=== PATIENT | male | born 1935 | race Caucasian/White ===

== ENCOUNTER 2017-05-01 17:26 | Inpatient (IN) | payer OTHER, MEDICARE ==
[~2017-05-01] VITALS: Ht 175.3 cm; Wt 77.3 kg
[2017-05-01 18:34] VITALS: BP 209/97; PULSE 64; RESP 19; TEMP 97.9; O2SAT 98
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
[2017-05-01 19:23] LABS: AUTOMATED NEUTROPHIL # 4.1 TH/MM3 (1.8-7.7); BASOPHIL % 0.5 % (0.0-2.0); EOSINOPHIL # 0.3 TH/MM3 (0-0.4); EOSINOPHIL % 4.8 % (0.0-4.0); HEMO FLAGS DIFF FINAL; LYMPH % 23.9 % (9.0-44.0); LYMPHOCYTE # 1.6 TH/MM3 (1.0-4.8); MEAN CELL VOLUME 100.6 FL (80.0-100.0); MEAN CORPUSCULAR HEMOGLOBIN 33.5 PG (27.0-34.0); MEAN CORPUSCULAR HGB CONC 33.3 % (32.0-36.0); MONO % 9.4 % (0.0-8.0); NEUT % 61.4 % (16.0-70.0); PLATELET COUNT 227 TH/MM3 (150-450); RED BLOOD COUNT 3.68 MIL/MM3 (4.50-5.90); RED CELL DISTRIBUTION WIDTH 13.3 % (11.6-17.2); WHITE BLOOD COUNT 6.7 TH/MM3 (4.0-11.0)
[2017-05-01 19:38] LABS: ANION GAP 4 MEQ/L (5-15); AST (GOT) 12 U/L (15-37); BICARBONATE 28.5 MEQ/L (21.0-32.0); BLOOD UREA NITROGEN 53 MG/DL (7-18); CHLORIDE 106 MEQ/L (98-107); GLOMERULAR FILTRATION RATE 20 ML/MIN (>89); POTASSIUM 4.9 MEQ/L (3.5-5.1); SODIUM (NA) 138 MEQ/L (136-145)
[2017-05-01 19:39] LABS: ALT (GPT) 20 U/L (12-78)
[2017-05-01 19:42] LABS: ALKALINE PHOSPHATASE 49 U/L (45-117); TOTAL BILIRUBIN ADULT 0.5 MG/DL (0.2-1.0)
[2017-05-01 21:20] VITALS: BP 205/84; PULSE 68; RESP 17
[2017-05-01] MEDS ORDERED: cloNIDine HCL 0.1 MG TAB PO ONE (21:30)
[2017-05-01 22:00] VITALS: BP 173/77; PULSE 65; RESP 19; O2SAT 95
[2017-05-01 23:00] VITALS: BP 123/58; PULSE 62; RESP 18; O2SAT 96
[2017-05-02 03:00] VITALS: BP 150/65; PULSE 54; RESP 18; O2SAT 96
[2017-05-02 07:13] VITALS: BP 181/79; PULSE 55; RESP 18; O2SAT 96
[2017-05-02] MEDS ORDERED: FLUO40CA PO (10:02)
[2017-05-02] MEDS ORDERED: NEXI20CA PO (10:26)
[2017-05-02] MEDS ORDERED: TOPR25TA PO (10:26)
[2017-05-02] MEDS ORDERED: MONT10TA2 PO (10:27)
[2017-05-02] MEDS ORDERED: PLAV75TA29 PO (10:27)
[2017-05-02] MEDS ORDERED: LOVA20TA PO (10:28)
[2017-05-02] MEDS ORDERED: IPRA17I INH (10:30)
[2017-05-02] MEDS ORDERED: ADVA500A INH (10:30)
[2017-05-02] MEDS ORDERED: SPIRCAP INH (10:31)
[2017-05-02] MEDS ORDERED: ALBU2TAB4 PO (10:31)
[2017-05-02] MEDS ORDERED: HYDR-3801 PO (10:32)
[2017-05-02] MEDS ORDERED: SYMB160A INH (10:34)
[2017-05-02] MEDS ORDERED: TRIA1CAP6 PO (10:34)
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
[2017-05-02] MEDS ORDERED: ACETAMINOPHEN 325 MG TAB PO PRN (11:45)
[2017-05-02] MEDS ORDERED: MAGNESIUM HYDROXIDE SUSP 30 ML CUP PO PRN (11:45)
[2017-05-02 13:21] VITALS: BP 178/77; PULSE 59; RESP 16; TEMP 98.2; O2SAT 97
[2017-05-02] MEDS: ALBUTEROL SULFATE 2 MG TAB PO SCH ×2 (14:00→18:00)
[2017-05-02] MEDS: BUDESONIDE-FORMOTEROL 160/4.5 MCG INHALER INH SCH (21:00)
[2017-05-02] MEDS ORDERED: [UNRECOGNIZED DRUG - OTHER] PO SCH (21:00)
[2017-05-02] MEDS ORDERED: TRIAMTERENE PO SCH (21:00)
[2017-05-02] MEDS: hydrALAZINE HCL 100 MG TAB PO SCH (21:00)
--- NOTE | 2017-05-02 21:30 | EKG ---
Date Performed: 05/01/2017 Time Performed: 18:43:10 PTAGE: 82 years EKG: Sinus rhythm WITH FIRST DEGREE AV BLOCK RIGHT BUNDLE BRANCH BLOCK CONSIDER INTRASUBLINE INJURY PATTERN ABNORMAL E CG NO PREVIOUS TRACING DOCTOR: Daron Steiner Interpretating Date/Time 05/02/2017 21:29:06
[2017-05-02] MEDS: MONTELUKAST SODIUM 10 MG TAB PO SCH (21:51)
[2017-05-03 06:12] VITALS: BP 180/82; PULSE 73; RESP 16; TEMP 97.9; O2SAT 93
[2017-05-03] MEDS: hydrALAZINE HCL 100 MG TAB PO SCH ×2 (06:37→22:11)
[2017-05-03] MEDS: TIOTROPIUM BROMIDE 18 MCG INH INH SCH (08:35)
[2017-05-03] MEDS: BUDESONIDE-FORMOTEROL 160/4.5 MCG INHALER INH SCH ×2 (08:36→13:11)
[2017-05-03] MEDS: METOPROLOL SUCCINATE 25 MG EXTENDED RELEASE TAB PO SCH (08:36)
[2017-05-03] MEDS: PANTOPRAZOLE SOD 20 MG DELAYED RELEASE TAB PO SCH (08:37)
[2017-05-03] MEDS: PRAVASTATIN SOD 20 MG TAB PO SCH (08:43)
[2017-05-03] MEDS: ALBUTEROL SULFATE 2 MG TAB PO SCH ×3 (08:43→18:00)
[2017-05-03 11:35] LABS: ANION GAP 7 MEQ/L (5-15); BICARBONATE 27.4 MEQ/L (21.0-32.0); BLOOD UREA NITROGEN 41 MG/DL (7-18); CHLORIDE 106 MEQ/L (98-107); GLOMERULAR FILTRATION RATE 25 ML/MIN (>89); POTASSIUM 4.7 MEQ/L (3.5-5.1); SODIUM (NA) 140 MEQ/L (136-145)
[2017-05-03 11:54] LABS: HDL CHOLESTEROL 32.2 MG/DL (40.0-60.0); LDL CHOLESTEROL 72 MG/DL (0-99)
[2017-05-03] MEDS: SERTRALINE HCL 50 MG TAB PO SCH (14:00)
[2017-05-03 17:11] LABS: HEMOGLOBIN A1a 1.1 %; HEMOGLOBIN A1b 1.8 %; HEMOGLOBIN Ao 84.4 %; HEMOGLOBIN LA1C 2.5 %; HEMOGLOBIN P3 5.5 %
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
[2017-05-03 18:39] VITALS: BP 150/67; PULSE 75; RESP 17; TEMP 97.8; O2SAT 94
[2017-05-03] MEDS: MONTELUKAST SODIUM 10 MG TAB PO SCH (22:11)
[2017-05-04 05:59] VITALS: BP 108/61; PULSE 73; RESP 16; TEMP 98.3
[2017-05-04] MEDS: PRAVASTATIN SOD 20 MG TAB PO SCH (09:00)
[2017-05-04] MEDS: ALBUTEROL SULFATE 2 MG TAB PO SCH ×3 (09:00→17:42)
[2017-05-04] MEDS: SERTRALINE HCL 50 MG TAB PO SCH (09:39)
[2017-05-04] MEDS: PANTOPRAZOLE SOD 20 MG DELAYED RELEASE TAB PO SCH (09:39)
[2017-05-04] MEDS: hydrALAZINE HCL 100 MG TAB PO SCH ×2 (09:39→20:43)
[2017-05-04] MEDS: METOPROLOL SUCCINATE 25 MG EXTENDED RELEASE TAB PO SCH (09:40)
[2017-05-04] MEDS: TIOTROPIUM BROMIDE 18 MCG INH INH SCH (09:40)
[2017-05-04] MEDS: BUDESONIDE-FORMOTEROL 160/4.5 MCG INHALER INH SCH ×2 (09:41→20:40)
--- NOTE | 2017-05-04 11:42 | PD.CONS ---
HPI Service [facility] Hospitalists Consult Requested By Psychiatry Reason for Consult Medical management onH/O stroke and decision whether to resume Plavix Primary Care Physician No Primary Care Physician Diagnoses: History of Present Illness 82 years old male who admitted to psychiatry due adjustment disorder with depressed mood, hospitalist consulted to see the patient regarding his medical history of strokes and coronary artery disease and to decide on whether to resume Plavix which was stopped in ED. I discussed with the patient is a pleasant elderly man he told me he had 3 strokes before, he had a stent placed in his heart rhonchi and ago patient currently has no chest pain. But he told me when his blood pressure was out of control did felt some chest tightness with pressure. 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 SKIN: No rashes, warm and dry HEAD: Atraumatic. Normocephalic. EYES: Pupils equal round and reactive. Extraocular motions intact. No scleral icterus. ENT: Nose without bleeding, or drainage, Airway patent. NECK: Trachea midline. Supple CARDIOVASCULAR: Regular rate and rhythm 3/6 systolic murmur RESPIRATORY: Fair air entry bilaterally. No wheezes, rales, or rhonchi. GASTROINTESTINAL: Abdomen soft, non-tender, nondistended. Positive bowel sounds , abdominal scars for previous surgery MUSCULOSKELETAL: Extremities without clubbing, cyanosis, or edema. Pedal pulses appreciated NEUROLOGICAL: Awake and alert. Moves all extremity. Normal speech.no focal neurological deficit Result Diagram: 05/01/17 1905 05/03/17 1010 Imaging Last Impressions Renal Ultrasound 05/04/17 0000 Signed Impressions: Service Date/Time: , May 04, 2017 10:38 - CONCLUSION: 1. Kidneys are slightly echogenic which can be seen with medical renal disease. 2. Bilateral renal cysts. 3. Enlarged prostate gland. Parish Soto MD Assessment and Plan Assessment and Plan 82 years old male admitted to psych unit for Adjustment disorder with depressed mood H/O strokes 3 History of CAD status post stenting Hypertension Hyperlipidemia ABHINAV on CKD History of hiatal hernia repair Remote history of tobacco abuse Recommendation: I definitely recommending resuming aspirin and Plavix Agree with resuming antihypertensive medication I will order kidney ultrasound, spot urine protein over creatinine ratio, UA to evaluate his kidney failure Will add clonidine when necessary for blood pressure optimization Will obtain medical records from his PCP office Monitor blood pressure closely, A1c within normal limit 5.6 Thank you for this consultation will follow patient with Rico Jaramillo MD May 04, 2017 11:42
--- NOTE | 2017-05-04 11:53 | RADRPT ---
EXAM DATE/TIME: 05/04/2017 10:38 [facility] COMPARISON: No previous studies available for comparison. INDICATIONS : Acute kidney injury with chronic kidney disease. MEDICAL HISTORY : Hypertension. Hernia, hiatal. COPD. Depression. SURGICAL HISTORY : Bilateral shoulder surgery. ENCOUNTER: Initial ACUITY: 1 day PAIN SCORE: 1/10 LOCATION: Bilateral flank MEASUREMENTS: RIGHT KIDNEY: 9.7 x 5.8 x 6.2 cm LEFT KIDNEY: 10.7 x 6.1 x 5.8 cm FINDINGS: RIGHT KIDNEY: Renal cortex is normal in thickness and increase in echotexture. No hydronephrosis, stone, or mass. Simple renal cyst measures 2.5 cm. LEFT KIDNEY: Renal cortex is normal in thickness and increase in echotexture. No hydronephrosis, stone, or mass. Simple cyst measures 1.2 cm. BLADDER: Within normal limits given the degree of distension. Enlarged prostate gland. CONCLUSION: 1. Kidneys are slightly echogenic which can be seen with medical renal disease. 2. Bilateral renal cysts. 3. Enlarged prostate gland. Parish Soto MD on May 04, 2017 at 11:50 Board Certified Radiologist. This report was verified electronically.
[2017-05-04] MEDS ORDERED: cloNIDine HCL 0.1 MG TAB PO PRN (12:00)
[2017-05-04] MEDS: CLOPIDOGREL 75 MG TAB PO SCH (12:14)
[2017-05-04] MEDS: ASPIRIN EC 81 MG TABEC PO SCH (12:14)
[2017-05-04 18:08] VITALS: BP 146/65; PULSE 66; RESP 18; TEMP 98.1; O2SAT 95
--- NOTE | 2017-05-04 18:13 | HHI.PYPN ---
Subjective Remarks Patient seen for follow up; chart reviewed. Patient found in day room interacting with others. Patient states feeling "pretty good", reports having had some difficulty with sleep last evening and states that he usually takes tylenol pm in the evening to sleep when he was at home. He reports no problems with appetite, bowel movement, mood lately has been "fine", tolerating medications well. Denies any suicidal ideations at this time. He mentions that his other daughter from [place] has come down to help. Review of Systems Except as stated in HPI: all other systems reviewed are Neg Objective Alert: Yes [place]: Person (ox4) Mood: Calm Affect: Restricted Memory Intact: Comment (No gross abnormality) Hallucinations: Other (negative) Delusions: No Delusion Type: Other (denies) Suicidal: Ideation (deneis) Homicidal: Ideation (denies any) Insight/Judgment fair insight, impulse control and judgement Vitals/IOs Vital Signs Date Time Temp Pulse Resp B/P (MAP) Pulse Ox O2 Delivery O2 Flow Rate FiO2 05/04/17 18:08 98.1 66 18 146/65 (92) 95 05/02/17 03:00 Room Air Intake and Output 05/04/17 05/04/17 05/05/17 08:00 16:00 00:00 Intake Total 600 ml Balance 600 ml Assessment & Plan Problem List: (1) Adjustment disorder ICD Codes: F43.20 - Adjustment disorder, unspecified Status: Acute Assessment & Plan Patient no longer endorsing suicidal ideations but noted to be guarded still. Collateral still pending from step daughter. Continue current treatment, will start diphenhydramine 25mg PO HS for sleep. Discharge planning in progress. Justification for Cont. Inpt. At risk for further decompensation if at lower level of care. Problem Qualifiers (1) Adjustment disorder: Qualified Codes: F43.21 - Adjustment disorder with depressed mood Parish Carrillo MD May 04, 2017 18:13
[2017-05-04] MEDS: diphenhydrAMINE HCL 25 MG CAP PO SCH (20:40)
[2017-05-04] MEDS: MONTELUKAST SODIUM 10 MG TAB PO SCH (20:40)
[2017-05-05 05:14] VITALS: BP 134/64; PULSE 71; RESP 16; TEMP 98
[2017-05-05] MEDS: ALBUTEROL SULFATE 2 MG TAB PO SCH ×3 (09:00→18:00)
[2017-05-05] MEDS: PRAVASTATIN SOD 20 MG TAB PO SCH (09:00)
[2017-05-05] MEDS: METOPROLOL SUCCINATE 25 MG EXTENDED RELEASE TAB PO SCH (09:12)
[2017-05-05] MEDS: PANTOPRAZOLE SOD 20 MG DELAYED RELEASE TAB PO SCH (09:13)
[2017-05-05] MEDS: CLOPIDOGREL 75 MG TAB PO SCH (09:13)
[2017-05-05] MEDS: SERTRALINE HCL 50 MG TAB PO SCH (09:13)
[2017-05-05] MEDS: hydrALAZINE HCL 100 MG TAB PO SCH ×2 (09:15→20:34)
[2017-05-05] MEDS: ASPIRIN EC 81 MG TABEC PO SCH (09:15)
[2017-05-05] MEDS: TIOTROPIUM BROMIDE 18 MCG INH INH SCH (09:16)
[2017-05-05] MEDS: BUDESONIDE-FORMOTEROL 160/4.5 MCG INHALER INH SCH ×2 (09:16→21:00)
[2017-05-05 13:17] LABS: BICARBONATE 27.4 MEQ/L (21.0-32.0); POTASSIUM 4.6 MEQ/L (3.5-5.1)
--- NOTE | 2017-05-05 16:48 | HHI.PYPN ---
Subjective Remarks Patient seen for follow up; chart reviewed. Discussion with nursing staff, patient noted to be pleasant and having some blunt affect but noted to be sociable with peers. Patient reports having slept well, mood being "good" denies feeling depressed and attending groups and activities. He states having been visited by his neighbor and daughter from [place] which he was happy to see them. He states having yet to communicate with his other stepdaughter who lives in [place] and was the one who called 911. He states that he will try and call her over the weekend. Review of Systems Except as stated in HPI: all other systems reviewed are Neg Objective Alert: Yes [place]: Person (ox4) Mood: Calm Affect: Restricted Memory Intact: Comment (No gross abnormality) Hallucinations: Other (negative) Delusions: No Delusion Type: Other (denies) Suicidal: Ideation (deneis) Homicidal: Ideation (denies any) Insight/Judgment limited insight, fair impulse control and judgment Labs labs reviewed Test 05/05/17 12:29 Blood Urea Nitrogen 58 MG/DL Creatinine 2.69 MG/DL Random Glucose 127 MG/DL Calcium Level 9.3 MG/DL Sodium Level 137 MEQ/L Potassium Level 4.6 MEQ/L Chloride Level 105 MEQ/L Carbon Dioxide Level 27.4 MEQ/L Anion Gap 5 MEQ/L Estimat Glomerular Filtration Rate 23 ML/MIN Vitals/IOs Vital Signs Date Time Temp Pulse Resp B/P (MAP) Pulse Ox O2 Delivery O2 Flow Rate FiO2 05/05/17 05:14 98.0 71 16 134/64 (87) 05/04/17 18:08 95 05/02/17 03:00 Room Air Assessment & Plan Problem List: (1) Adjustment disorder ICD Codes: F43.20 - Adjustment disorder, unspecified Status: Acute Assessment & Plan Patient continues to be noted to have improved mood, denies suicidal ideations. Continue current treatment. Collateral pending from stepdaughter and will attempt to involve her in his care and discharge plan. Discharge planning in progress. Justification for Cont. Inpt. At risk for further decompensation if at lower level of care. Problem Qualifiers (1) Adjustment disorder: Qualified Codes: F43.21 - Adjustment disorder with depressed mood Parish Carrillo MD May 05, 2017 16:48
[2017-05-05 18:21] VITALS: BP 155/72; PULSE 66; RESP 17; TEMP 97; O2SAT 94
[2017-05-05] MEDS: MONTELUKAST SODIUM 10 MG TAB PO SCH (20:34)
[2017-05-05] MEDS: diphenhydrAMINE HCL 25 MG CAP PO SCH (21:00)
[2017-05-05] MEDS: ALUMINUM/MAGNESIUM/SIMETH 30 ML CUP PO PRN (22:05)
[2017-05-06 06:20] VITALS: BP 143/66; PULSE 70; RESP 18; TEMP 98.7; O2SAT 92
[2017-05-06] MEDS: CLOPIDOGREL 75 MG TAB PO SCH (08:44)
[2017-05-06] MEDS: SERTRALINE HCL 50 MG TAB PO SCH (08:44)
[2017-05-06] MEDS: METOPROLOL SUCCINATE 25 MG EXTENDED RELEASE TAB PO SCH (08:44)
[2017-05-06] MEDS: PANTOPRAZOLE SOD 20 MG DELAYED RELEASE TAB PO SCH (08:45)
[2017-05-06] MEDS: hydrALAZINE HCL 100 MG TAB PO SCH ×2 (08:45→21:45)
[2017-05-06] MEDS: ASPIRIN EC 81 MG TABEC PO SCH (08:45)
[2017-05-06] MEDS: ALBUTEROL SULFATE 2 MG TAB PO SCH ×3 (08:45→17:44)
[2017-05-06] MEDS: BUDESONIDE-FORMOTEROL 160/4.5 MCG INHALER INH SCH ×2 (08:45→21:00)
[2017-05-06] MEDS: PRAVASTATIN SOD 20 MG TAB PO SCH (08:45)
[2017-05-06] MEDS: TIOTROPIUM BROMIDE 18 MCG INH INH SCH (08:46)
--- NOTE | 2017-05-06 12:40 | HHI.PR ---
Subjective Remarks Patient doing well, sitting in the activity room, denied any complaints such as chest pain headache, short of breath lightheaded or dizziness Objective Vitals Vital Signs Date Time Temp Pulse Resp B/P (MAP) Pulse Ox O2 Delivery O2 Flow Rate FiO2 05/06/17 06:20 98.7 70 18 143/66 (91) 92 05/05/17 18:21 97.0 66 17 155/72 (99) 94 Result Diagram: 05/05/17 1229 Objective Remarks GENERAL: This is a well-nourished, well-developed patient, in no apparent distress. SKIN: No rashes, warm and dry HEAD: Atraumatic. Normocephalic. EYES: Pupils equal round and reactive. Extraocular motions intact. No scleral icterus. ENT: Nose without bleeding, or drainage, Airway patent. NECK: Trachea midline. Supple CARDIOVASCULAR: Regular rate and rhythm 3/6 systolic murmur RESPIRATORY: Fair air entry bilaterally. No wheezes, rales, or rhonchi. GASTROINTESTINAL: Abdomen soft, non-tender, nondistended. Positive bowel sounds , abdominal scars for previous surgery MUSCULOSKELETAL: Extremities without clubbing, cyanosis, or edema. Pedal pulses appreciated NEUROLOGICAL: Awake and alert. Moves all extremity. Normal speech.no focal neurological deficit A/P Assessment and Plan 82 years old male admitted to psych unit for Adjustment disorder with depressed mood H/O strokes 3 History of CAD status post stenting Hypertension Hyperlipidemia ABHINAV on CKD History of hiatal hernia repair Remote history of tobacco abuse Recommendation: aspirin and Plavix resumed Continue antihypertensive medication kidney ultrasound, reviewed positive for chronic kidney disease, will continue monitoring BMP, and creatinine trending add clonidine when necessary for blood pressure optimization Waiting medical records from his PCP office Monitor blood pressure closely, A1c within normal limit 5.6 Rico Jaramillo MD May 06, 2017 12:40
[2017-05-06 14:05] LABS: AUTOMATED NEUTROPHIL # 5.4 TH/MM3 (1.8-7.7); BASOPHIL % 0.6 % (0.0-2.0); EOSINOPHIL # 0.3 TH/MM3 (0-0.4); EOSINOPHIL % 3.7 % (0.0-4.0); HEMATOCRIT 36.7 % (39.0-51.0); HEMO FLAGS DIFF FINAL; LYMPH % 19.1 % (9.0-44.0); LYMPHOCYTE # 1.5 TH/MM3 (1.0-4.8); MEAN CELL VOLUME 100.1 FL (80.0-100.0); MEAN CORPUSCULAR HEMOGLOBIN 33.3 PG (27.0-34.0); MEAN CORPUSCULAR HGB CONC 33.3 % (32.0-36.0); MONO % 9.7 % (0.0-8.0); NEUT % 66.9 % (16.0-70.0); PLATELET COUNT 288 TH/MM3 (150-450); RED BLOOD COUNT 3.67 MIL/MM3 (4.50-5.90); RED CELL DISTRIBUTION WIDTH 13.2 % (11.6-17.2); WHITE BLOOD COUNT 8.1 TH/MM3 (4.0-11.0)
[2017-05-06 14:13] LABS: BICARBONATE 28.1 MEQ/L (21.0-32.0); POTASSIUM 4.8 MEQ/L (3.5-5.1)
--- NOTE | 2017-05-06 15:37 | HHI.PYPN ---
Subjective Remarks PT seen and discussed with staff. He has been compliant and cooperative. He has been processing stressors with RN. He denies SI/HI Objective Alert: Yes [place]: Person (ox4) Mood: Calm Affect: Restricted Memory Intact: Comment (No gross abnormality) Hallucinations: Other (negative) Delusions: No Delusion Type: Other (denies) Suicidal: Ideation (deneis) Homicidal: Ideation (denies any) Insight/Judgment poor Labs Test 05/06/17 13:11 White Blood Count 8.1 TH/MM3 Red Blood Count 3.67 MIL/MM3 Hemoglobin 12.2 GM/DL Hematocrit 36.7 % Mean Corpuscular Volume 100.1 FL Mean Corpuscular Hemoglobin 33.3 PG Mean Corpuscular Hemoglobin Concent 33.3 % Red Cell Distribution Width 13.2 % Platelet Count 288 TH/MM3 Mean Platelet Volume 7.9 FL Neutrophils (%) (Auto) 66.9 % Lymphocytes (%) (Auto) 19.1 % Monocytes (%) (Auto) 9.7 % Eosinophils (%) (Auto) 3.7 % Basophils (%) (Auto) 0.6 % Neutrophils # (Auto) 5.4 TH/MM3 Lymphocytes # (Auto) 1.5 TH/MM3 Monocytes # (Auto) 0.8 TH/MM3 Eosinophils # (Auto) 0.3 TH/MM3 Basophils # (Auto) 0.0 TH/MM3 CBC Comment DIFF FINAL Differential Comment Blood Urea Nitrogen 62 MG/DL Creatinine 2.62 MG/DL Random Glucose 84 MG/DL Calcium Level 8.9 MG/DL Sodium Level 139 MEQ/L Potassium Level 4.8 MEQ/L Chloride Level 106 MEQ/L Carbon Dioxide Level 28.1 MEQ/L Anion Gap 5 MEQ/L Estimat Glomerular Filtration Rate 23 ML/MIN Vitals/IOs Vital Signs Date Time Temp Pulse Resp B/P (MAP) Pulse Ox O2 Delivery O2 Flow Rate FiO2 05/06/17 06:20 98.7 70 18 143/66 (91) 92 Assessment & Plan Problem List: (1) Adjustment disorder ICD Codes: F43.20 - Adjustment disorder, unspecified Status: Acute Assessment & Plan Continue current tx plan. Estimated LOS: days Justification for Cont. Inpt. monitoring for safety Problem Qualifiers (1) Adjustment disorder: Qualified Codes: F43.21 - Adjustment disorder with depressed mood Anel Galan MD May 06, 2017 15:37
[2017-05-06 18:34] VITALS: BP 150/65; PULSE 82; RESP 18; TEMP 98.6; O2SAT 93
[2017-05-06] MEDS: diphenhydrAMINE HCL 25 MG CAP PO SCH (21:45)
[2017-05-06] MEDS: MONTELUKAST SODIUM 10 MG TAB PO SCH (21:45)
[2017-05-06] MEDS: ALUMINUM/MAGNESIUM/SIMETH 30 ML CUP PO PRN (21:49)
[2017-05-07 06:27] VITALS: BP 133/63; PULSE 73; RESP 18; TEMP 97.8; O2SAT 95
[2017-05-07] MEDS: TIOTROPIUM BROMIDE 18 MCG INH INH SCH (08:02)
[2017-05-07] MEDS: PANTOPRAZOLE SOD 20 MG DELAYED RELEASE TAB PO SCH (08:03)
[2017-05-07] MEDS: ALBUTEROL SULFATE 2 MG TAB PO SCH ×3 (08:03→17:59)
[2017-05-07] MEDS: METOPROLOL SUCCINATE 25 MG EXTENDED RELEASE TAB PO SCH (08:03)
[2017-05-07] MEDS: BUDESONIDE-FORMOTEROL 160/4.5 MCG INHALER INH SCH ×2 (08:03→21:00)
[2017-05-07] MEDS: PRAVASTATIN SOD 20 MG TAB PO SCH (08:04)
[2017-05-07] MEDS: SERTRALINE HCL 50 MG TAB PO SCH (08:04)
[2017-05-07] MEDS: hydrALAZINE HCL 100 MG TAB PO SCH ×2 (08:04→21:00)
[2017-05-07] MEDS: CLOPIDOGREL 75 MG TAB PO SCH (08:04)
[2017-05-07] MEDS: ASPIRIN EC 81 MG TABEC PO SCH (08:04)
--- NOTE | 2017-05-07 13:51 | HHI.PR ---
Subjective Remarks doing well , no complain will s/o Objective Vitals Vital Signs Date Time Temp Pulse Resp B/P (MAP) Pulse Ox O2 Delivery O2 Flow Rate FiO2 05/07/17 06:27 97.8 73 18 133/63 (86) 95 05/06/17 18:34 98.6 82 18 150/65 (93) 93 I/O 05/06/17 05/06/17 05/06/17 05/07/17 05/07/17 05/07/17 07:00 15:00 23:00 07:00 15:00 23:00 Intake Total 240 ml Balance 240 ml Intake Oral 240 ml Result Diagram: 05/06/17 1311 05/06/17 1311 Objective Remarks GENERAL: This is a well-nourished, well-developed patient, in no apparent distress. SKIN: No rashes, warm and dry HEAD: Atraumatic. Normocephalic. EYES: Pupils equal round and reactive. Extraocular motions intact. No scleral icterus. ENT: Nose without bleeding, or drainage, Airway patent. NECK: Trachea midline. Supple CARDIOVASCULAR: Regular rate and rhythm 3/6 systolic murmur RESPIRATORY: Fair air entry bilaterally. No wheezes, rales, or rhonchi. GASTROINTESTINAL: Abdomen soft, non-tender, nondistended. Positive bowel sounds , abdominal scars for previous surgery MUSCULOSKELETAL: Extremities without clubbing, cyanosis, or edema. Pedal pulses appreciated NEUROLOGICAL: Awake and alert. Moves all extremity. Normal speech.no focal neurological deficit A/P Assessment and Plan 82 years old male admitted to psych unit for Adjustment disorder with depressed mood H/O strokes 3 History of CAD status post stenting Hypertension Hyperlipidemia ABHINAV on CKD stage 3-4 History of hiatal hernia repair Remote history of tobacco abuse Recommendation: CR stable at 2.6>> mostly this is his base line , need to ff outpt aspirin and Plavix resumed Continue antihypertensive medication kidney ultrasound, reviewed positive for chronic kidney disease, will continue monitoring BMP, and creatinine trending add clonidine when necessary for blood pressure optimization medical records from his PCP office not available Monitor blood pressure closely, A1c within normal limit 5.6 will s/o and be available as needed Rico Jaramillo MD May 07, 2017 13:51
--- NOTE | 2017-05-07 16:19 | HHI.PYPN ---
Subjective Remarks Pt seen and discussed with staff. He reports mood is improved and depression decreased. He has been active in unit activitites and interacting with staff and peers. He denies SI/HI. He is medication compliant and denies side effects. Objective Alert: Yes [place]: Person, Place, Date, Situation Mood: Calm Affect: Restricted Memory Intact: Comment (intact) Hallucinations: Other (none) Delusions: No Delusion Type: Other (none) Suicidal: Ideation (deneis) Homicidal: Ideation (denies any) Insight/Judgment poor Vitals/IOs Vital Signs Date Time Temp Pulse Resp B/P (MAP) Pulse Ox O2 Delivery O2 Flow Rate FiO2 05/07/17 06:27 97.8 73 18 133/63 (86) 95 Intake and Output 05/07/17 05/07/17 05/08/17 08:00 16:00 00:00 Intake Total 240 ml Balance 240 ml Assessment & Plan Problem List: (1) Adjustment disorder ICD Codes: F43.20 - Adjustment disorder, unspecified Status: Acute Assessment & Plan Pt improving. Continue current tx plan. Estimated LOS: days Justification for Cont. Inpt. monitoring for safety Problem Qualifiers (1) Adjustment disorder: Qualified Codes: F43.21 - Adjustment disorder with depressed mood Anel Galan MD May 07, 2017 16:19
[2017-05-07 18:25] VITALS: BP 136/62; PULSE 61; RESP 18; TEMP 97.8; O2SAT 95
[2017-05-07] MEDS: MONTELUKAST SODIUM 10 MG TAB PO SCH (21:00)
[2017-05-07] MEDS: diphenhydrAMINE HCL 25 MG CAP PO SCH (21:00)
[2017-05-08 04:38] VITALS: BP 130/72; PULSE 66; RESP 18; TEMP 98; O2SAT 94
[2017-05-08] MEDS: ALBUTEROL SULFATE 2 MG TAB PO SCH (09:00)
[2017-05-08] MEDS: BUDESONIDE-FORMOTEROL 160/4.5 MCG INHALER INH SCH (09:00)
[2017-05-08] MEDS: PRAVASTATIN SOD 20 MG TAB PO SCH (09:00)
[2017-05-08] MEDS: SERTRALINE HCL 50 MG TAB PO SCH (09:11)
[2017-05-08] MEDS: ASPIRIN EC 81 MG TABEC PO SCH (09:11)
[2017-05-08] MEDS: CLOPIDOGREL 75 MG TAB PO SCH (09:11)
[2017-05-08] MEDS: PANTOPRAZOLE SOD 20 MG DELAYED RELEASE TAB PO SCH (09:12)
[2017-05-08] MEDS: METOPROLOL SUCCINATE 25 MG EXTENDED RELEASE TAB PO SCH (09:12)
[2017-05-08] MEDS: hydrALAZINE HCL 100 MG TAB PO SCH (09:12)
[2017-05-08] MEDS: TIOTROPIUM BROMIDE 18 MCG INH INH SCH (09:13)
[2017-05-08] MEDS ORDERED: METO25TA6 PO (11:41)
[2017-05-08] MEDS ORDERED: ALBU2TAB4 PO (11:41)
[2017-05-08] MEDS ORDERED: SYMB160A INH (11:41)
[2017-05-08] MEDS ORDERED: PANT20 PO (11:41)
[2017-05-08] MEDS ORDERED: PRAV20TA PO (11:41)
[2017-05-08] MEDS ORDERED: ZOLO50TA PO (11:41)
[2017-05-08] MEDS ORDERED: HYDR-3801 PO (11:41)
[2017-05-08] MEDS ORDERED: MONT10TA4 PO (11:41)
[2017-05-08] MEDS ORDERED: ASPI-99 PO (11:41)
[2017-05-08] MEDS ORDERED: SPIRCAP INH (11:41)
[2017-05-08] MEDS ORDERED: PLAV75TA29 PO (11:41)
[2017-05-08] MEDS ORDERED: BENA25CA4 PO (11:41)
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
== END 2017-05-08 14:50 | disposition home or self-care (01) | DRG 882 ==
LOC: NEPD 17:26 → NEDA 05-02 11:49 → H260 05-02 12:29
PROVIDERS: ADMIT Student in an Organized Health Care Education/Training Program; ATTEND Student in an Organized Health Care Education/Training Program
DX: F43.20 Adjustment disorder, unspecified (principal); N17.9 Acute kidney failure, unspecified; J44.9 Chronic obstructive pulmonary disease, unspecified; I25.10 Atherosclerotic heart disease of native coronary artery without angina pectoris; Z95.5 Presence of coronary angioplasty implant and graft; Z86.73 Personal history of transient ischemic attack (TIA), and cerebral infarction without residual deficits; I12.9 Hypertensive chronic kidney disease with stage 1 through stage 4 chronic kidney disease, or unspecified chronic kidney disease; N18.9 Chronic kidney disease, unspecified; Z87.891 Personal history of nicotine dependence; E78.5 Hyperlipidemia, unspecified
CPT/HCPCS: 76775; 80048; 80053; 80061; 80307; 82607; 83036; 84443; 85025; 93005